=== PATIENT | male | born 1965 | race African-American/Black ===

== ENCOUNTER 2017-04-10 14:51 | Emergency (ER) | payer OTHER ==
[~2017-04-10] VITALS: Ht 180.3 cm; Wt 80.7 kg
[~2017-04-10 14:51] MED LIST: COLACE100 MG ORAL; NITROFURANTOIN100 M2 ORAL
[2017-04-10] MEDS ORDERED: NKM (15:11)
[2017-04-10] MEDS ORDERED: VERTICALM25 MG ORAL (15:44)
[2017-04-10 15:45] VITALS: BP 130/81
--- NOTE | 2017-04-10 18:53 | Emergency Room Report ---
History of Present Illness General Chief Complaint: Vertigo Source: Patient Present Illness HPI The patient is a 51-year-old male presenting for dizziness. He states that he was at home yesterday, made a sudden movement with his head, and then felt like the room was spinning. Symptoms have since resolved. He states that he felt an accompanying fullness in his right ear. He denies any pain He denies any other symptoms including nausea, vomiting, blurred vision, headache, chest pain , shortness of breath Allergies: Coded Allergies: No Known Allergies (Unverified , 08/16/15) Patient History Past Medical History: see triage record Pertinent Family History: none Reviewed Nursing Documentation: PMH: Agreed, PSxH: Agreed Nursing Documentation-PMH Past Medical History: No History, Except For Review of Systems All Other Systems: negative except mentioned in HPI Physical Exam Vital Signs Date Time Temp Pulse Resp B/P (MAP) Pulse Ox O2 Delivery O2 Flow Rate FiO2 04/10/17 15:08 99.0 90 17 130/81 97 Room Air Sp02 EP Interpretation: reviewed, normal General Appearance: no apparent distress, alert, GCS 15, non-toxic Head: normocephalic, atraumatic Eyes: bilateral eye normal inspection, bilateral eye PERRL ENT: hearing grossly normal, normal pharynx, no angioedema, normal voice, TMs + canals normal, uvula midline Neck: full range of motion, supple/symm/no masses Respiratory: chest non-tender, lungs clear, normal breath sounds, speaking full sentences Cardiovascular #1: regular rate, rhythm, no edema Musculoskeletal: back normal, gait/station normal, normal range of motion, non- tender Neurologic: alert, oriented x3, responsive, motor strength/tone normal, sensory intact, speech normal Psychiatric: judgement/insight normal, memory normal, mood/affect normal, no suicidal/homicidal ideation Skin: normal color, no rash, warm/dry, well hydrated Medical Decision Making PA Attestation Dr. Paul is my supervising physician. Patient management was discussed with my supervising physician Diagnostic Impression: Primary Impression: Vertigo ER Course The patient is a 51-year-old male presenting for dizziness. Differential diagnoses considered but not limited to: Benign positional vertigo , positional hypotension, labyrinthitis, Mnire's disease, AOM PE:vitals stable. NAD HEENT: Bilateral TM unremarkable. No erythema or bulging. No serous fluid is seen. PERRL. EOMI. no nystagmus. RRR Lungs clear to auscultation bilaterally The patient will be discharged with prescription for meclizine. He was told he needs to followup with his primary doctor. He may need to see ENT if symptoms continue. ER precautions are given Last Vital Signs Date Time Temp Pulse Resp B/P (MAP) Pulse Ox O2 Delivery O2 Flow Rate FiO2 04/10/17 15:08 99.0 90 17 130/81 97 Room Air Status: improved Disposition: HOME, SELF-CARE Condition: Improved Scripts Meclizine Hcl* (VERTICALM*) 25 Mg Tablet 25 MG ORAL THREE TIMES A DAY, #15 TAB Prov: ANASTASIIA WEBB 04/10/17 Referrals: [facility],REFERRING (PCP) Patient Instructions: Vertigo Additional Instructions: I discussed my findings with the patient. All questions and concerns have been answered. Treatment and medication compliance have been addressed. I advised the patient that they need to follow up with PMD in 3-5 days. Return to ED if symptoms worsen, new symptoms arise, or if needed for any reason. Patient verbalized understanding of discharge instructions. ANASTASIIA WEBB Apr 10, 2017 18:53
== END 2017-04-10 15:45 | disposition home or self-care (01) ==
LOC: EMR 15:38
DX: R42 Dizziness and giddiness (principal)
CPT/HCPCS: 99283

== ENCOUNTER 2017-10-25 14:28 | Emergency (ER) | payer OTHER ==
[~2017-10-25] VITALS: Ht 180.3 cm; Wt 80.7 kg
[~2017-10-25 14:28] MED LIST changes: +NKM; +VERTICALM25 MG ORAL
[2017-10-25 14:48] VITALS: BP 131/92
--- NOTE | 2017-10-25 15:47 | Emergency Room Report ---
History of Present Illness General Chief Complaint: Pain Source: Patient Present Illness HPI 52-year-old male presents to the emergency department complaining of currently 2 out of 10 in severity pain localized left shoulder 2 days. Patient reports that intermittently his pain will shoot up to about 8 out of 10 in severity and hearing primarily notices this at nighttime. 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 He is injury to this extremity in the past. He reports new onset clicking sensation with range of motion he denies erythema, open wounds, swelling or increased temperature palpation. Patient denies obvious deformities, unilateral weakness in the affected arm or paresthesias. He denies neck or back pain. Denies loss of sensation or gross motor movements of the extremities, incontinence of bowel or bladder. Denies CP, Palpitations, LOC, AMS, dizziness, Changes in Vision, weakness or a sudden severe headache. Allergies: Coded Allergies: No Known Allergies (Unverified , 08/16/15) Patient History Past Medical History: see triage record Past Surgical History: none Pertinent Family History: none Reviewed Nursing Documentation: PMH: Agreed; PSxH: Agreed Nursing Documentation-PMH Past Medical History: No History, Except For Review of Systems All Other Systems: negative except mentioned in HPI Physical Exam Vital Signs Date Time Temp Pulse Resp B/P (MAP) Pulse Ox O2 Delivery O2 Flow Rate FiO2 10/25/17 14:40 98.0 86 18 131/92 97 Room Air 98.1 Sp02 EP Interpretation: reviewed, normal General Appearance: no apparent distress, alert, GCS 15, non-toxic Head: normocephalic, atraumatic Eyes: bilateral eye normal inspection, bilateral eye PERRL ENT: hearing grossly normal, normal voice Neck: full range of motion Respiratory: lungs clear, normal breath sounds, speaking full sentences Cardiovascular #1: regular rate, rhythm, normal capillary refill Cardiovascular #2: 2+ radial (L) Musculoskeletal: back normal, gait/station normal, normal range of motion, tender - TTP to the posteriolateral left shoulder, no clicking palpated on range of motion. no obvious deformities. Neurologic: alert, oriented x3, responsive, motor strength/tone normal, sensory intact, normal gait, speech normal, grossly normal Psychiatric: judgement/insight normal Skin: normal color, no rash, warm/dry, well hydrated Medical Decision Making PA Attestation Dr. Velasquez is my supervising Physician whom patient management has been discussed with. Diagnostic Impression: Primary Impression: Tendinitis of left rotator cuff Additional Impression: Shoulder pain, left Qualified Codes: M25.512 - Pain in left shoulder ER Course 52-year-old male presents to the emergency department complaining of currently 2 out of 10 in severity pain localized left shoulder 2 days. Patient reports that intermittently his pain will shoot up to about 8 out of 10 in severity and hearing primarily notices this at nighttime. 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 He is injury to this extremity in the past. He reports new onset clicking sensation with range of motion he denies erythema, open wounds, swelling or increased temperature palpation. Patient denies obvious deformities, unilateral weakness in the affected arm or paresthesias. He denies neck or back pain. Denies loss of sensation or gross motor movements of the extremities, incontinence of bowel or bladder. Denies CP, Palpitations, LOC, AMS, dizziness, Changes in Vision, weakness or a sudden severe headache. Ddx considered but are not limited to Fracture, dislocation, contusion, Sprain/ Strain/Spasm , rotator cuff injury just to name a few. Vital signs: are WNL, pt. is afebrile H&PE are most consistent with musculoskeletal injury will perform imaging to r/ o fractures/dislocations. ORDERS: - X-ray Left shoulder - negative for fx, Dislocation, or significant soft tissue injury, per preliminary read in ED, and signed by JAMIE Callejas, my supervising physician has reviewed, and agrees with my interpretation. ED INTERVENTIONS: - Motrin PO DISCHARGE: At this time pt. is stable for d/c to home. Will provide printed patient care instructions, and any necessary prescriptions. Care plan and follow up instructions have been discussed with the patient prior to discharge. Other X-Ray Diagnostic Results Other X-Ray Diagnostic Results : X-Ray ordered: Left Shoulder # of Views/Limited Vs Complete: 3 View Indication: Pain EP Interpretation: Yes PA Xray: Interpretation reviewed, by supervising MD, and agrees with findings. Interpretation: no dislocation, no soft tissue swelling, no fractures Impression: No acute disease Electronically Signed by: Nayely Callejas PA-C Last Vital Signs Date Time Temp Pulse Resp B/P (MAP) Pulse Ox O2 Delivery O2 Flow Rate FiO2 10/25/17 15:36 98.1 10/25/17 14:48 89 18 131/92 97 Room Air Disposition: HOME, SELF-CARE Condition: Stable Scripts Methocarbamol* (ROBAXIN*) 500 Mg Tablet 1000 MG PO TID for 7 Days, #42 TAB 0 Refills Prov: Nayely Callejas 10/25/17 Ibuprofen* (MOTRIN*) 600 Mg Tablet 600 MG ORAL THREE TIMES A DAY, #30 TAB 0 Refills Prov: Nayely Callejas 10/25/17 Referrals: [facility],REFERRING (PCP) Patient Instructions: Rotator Cuff Tendinitis Additional Instructions: Take medications as directed. Follow up with a Primary Care Provider in 3-5 days, even if your symptoms have resolved. --Please review list of primary care clinics, if you do not already have a primary care provider Return sooner to ED if new symptoms occur, or current symptoms become worse. Do not drink alcohol, drive, or operate heavy machinery while taking Muscle Relaxers/ Robaxin as this may cause drowsiness. - Please note that this Emergency Department Report was dictated using [employer] portal concierge technology software, occasionally this can lead to erroneous entry secondary to interpretation by the dictation equipment. Nayely Callejas Oct 25, 2017 15:47
[2017-10-25] MEDS ORDERED: IBUPROFEN600 MG ORAL (15:50)
[2017-10-25] MEDS ORDERED: ROBAXIN500 MG PO (15:50)
[2017-10-25 15:54] VITALS: BP 125/78
--- NOTE | 2017-10-25 16:30 | Diagnostic Imaging Report ---
Indication: Pain Technique: XRAY Shoulder Compl L Comparison: None Findings/Impression: No acute fracture or dislocation. Imaged left lung grossly clear. No radiopaque foreign body identified. No discrete soft tissue abnormality appreciated.
== END 2017-10-25 15:55 | disposition home or self-care (01) ==
LOC: EMR 15:12
DX: M75.102 Unspecified rotator cuff tear or rupture of left shoulder, not specified as traumatic (principal)
CPT/HCPCS: 99283

== ENCOUNTER 2019-04-25 16:56 | Emergency (ER) | payer OTHER ==
[~2019-04-25] VITALS: Ht 180.3 cm; Wt 79.4 kg
[~2019-04-25 16:56] MED LIST changes: +IBUPROFEN600 MG ORAL; +ROBAXIN500 MG PO
[2019-04-25] MEDS ORDERED: Dicyclomine 10mg Cap ORAL ONE (17:30)
--- NOTE | 2019-04-25 17:50 | NUR ---
ED Nurse Note: Patient arrived to ED from home c/o left-sided abdominal pain and gas x 1 month. Patient states he tries eating "soothing foods" but it is not helping. Patient AxO x 4, no s/s of acute distress. 20 g IV started in left AC. Blood and urine sent to lab.
[2019-04-25 18:06] LABS: APPEARANCE,URINE CLEAR; BILIRUBIN, URINE NEGATIVE (NEGATIVE); COLOR,URINE AMBER; GLUCOSE, URINE (UA) NEGATIVE (NEGATIVE); KETONES,URINE 1+ (NEGATIVE); LEUKOCYTE ESTERASE ,URINE NEGATIVE (NEGATIVE); NITRITE,URINE NEGATIVE (NEGATIVE); PH,URINE 5 (4.5-8.0); PROTEIN,URINE NEGATIVE (NEGATIVE); UROBILINOGEN,URINE NORMAL MG/DL (0.0-1.0)
[2019-04-25 18:11] LABS: HEMATOCRIT 45.5 % (42.0-52.0); HEMOGLOBIN 14.6 G/DL (14.2-18.0); MEAN CORPUSCULAR VOLUME 97 FL (80-99); PLATELET COUNT 221 K/UL (150-450); RED CELL DISTRIBUTION WIDTH 12.5 % (11.6-14.8); WHITE BLOOD COUNT 12.1 K/UL (4.8-10.8)
[2019-04-25 18:28] LABS: ANION GAP 9 mmol/L (5-15); BLOOD UREA NITROGEN 21 mg/dL (7-18); CALCIUM 8.8 MG/DL (8.5-10.1); CARBON DIOXIDE 26 MMOL/L (21-32); CHLORIDE 107 MMOL/L (98-107); POTASSIUM 3.8 MMOL/L (3.5-5.1); SODIUM 142 MMOL/L (136-145)
[2019-04-25 18:32] LABS: ALANINE AMINOTRANSFERASE 33 U/L (12-78); ALBUMIN 4.1 G/DL (3.4-5.0); ALBUMIN/GLOBULIN RATIO 1.1 (1.0-2.7); ALKALINE PHOSPHATASE 69 U/L (46-116); ASPARTATE AMINO TRANSFERASE 16 U/L (15-37); BILIRUBIN,TOTAL 0.3 MG/DL (0.2-1.0)
--- NOTE | 2019-04-25 19:05 | NUR ---
ED Nurse Note: Received report from JOSS quiroz
[2019-04-25 19:10] VITALS: BP 132/85
--- NOTE | 2019-04-25 19:40 | Diagnostic Imaging Report ---
EXAM: CT Abdomen and Pelvis Without Intravenous Contrast CLINICAL HISTORY: PAIN TECHNIQUE: Axial computed tomography images of the abdomen and pelvis without intravenous contrast. One or more of the following dose reduction techniques were used: automated exposure control, adjustment of the mA and/or kV according to patient size, use of iterative reconstruction technique. CT DI: 19.3 DLP: 1123.5 COMPARISON: No relevant prior studies available. FINDINGS: Lung bases demonstrate no acute infiltrate. The liver, biliary tree, pancreas, spleen, and kidneys are within normal limits. Thickening of the left adrenal gland without discrete mass. Consider hyperplasia. Diverticulosis coli without diverticulitis. No bowel obstruction or perforation. The appendix is unremarkable. No abdominal aortic aneurysm. Small fatty umbilical hernia. No acute fracture. Disc degeneration at L5-S1. IMPRESSION: Diverticulosis coli without diverticulitis. Left adrenal gland thickening without discrete mass. Consider hyperplasia.
--- NOTE | 2019-04-25 20:04 | Emergency Room Report ---
History of Present Illness General Chief Complaint: Abdominal Pain Source: Patient Present Illness HPI 53-year-old male with no significant past medical history here complaining of over 1 month of left upper and lower abdominal pain with lots of flatulence. Denies constipation diarrhea. Denies blood in stool. Denies nausea vomiting however complains of acid reflux. Reports that he often eats a lot of acidic food and often smokes cigarettes. Denies any alcohol intake recently. Denies fever and chills, urinary symptoms, chest pain, shortness of breath, palpitation , no other associate symptoms. Has not recently traveled. Has not taken medication for symptom relief. Has not had a colonoscopy. Allergies: Coded Allergies: No Known Allergies (Unverified , 08/16/15) Patient History Past Medical History: see triage record Past Surgical History: unable to obtain Pertinent Family History: none Immunizations: UTD Reviewed Nursing Documentation: PMH: Agreed; PSxH: Agreed Nursing Documentation-PMH Past Medical History: No History, Except For Review of Systems All Other Systems: negative except mentioned in HPI Physical Exam Vital Signs Date Time Temp Pulse Resp B/P (MAP) Pulse Ox O2 Delivery O2 Flow Rate FiO2 04/25/19 17:05 98.6 85 16 129/91 (104) 95 Room Air Sp02 EP Interpretation: reviewed, normal General Appearance: no apparent distress, alert, GCS 15, non-toxic Head: normocephalic, atraumatic Eyes: bilateral eye normal inspection, bilateral eye PERRL ENT: hearing grossly normal, normal pharynx, no angioedema, normal voice Neck: full range of motion, supple/symm/no masses Respiratory: chest non-tender, lungs clear, normal breath sounds, no rhonchi, respiratory distress, speaking full sentences Cardiovascular #1: regular rate, rhythm, no edema, no murmur Gastrointestinal: normal bowel sounds, non tender, soft, no mass, no organomegaly, no peritonitis, no bruit, non-distended, no guarding, no hernia, no pulsatile mass, no rebound Rectal: deferred Genitourinary: no CVA tenderness Musculoskeletal: back normal, normal range of motion, gait/station normal, non- tender Neurologic: alert, motor strength/tone normal, oriented x3, sensory intact, responsive, speech normal Psychiatric: judgement/insight normal, memory normal, mood/affect normal, no suicidal/homicidal ideation Skin: no rash Lymphatic: no adenopathy Medical Decision Making PA Attestation All my diagnosis and treatment plans were reviewed ad discussed with my supervising physician Dr. Velasquez Diagnostic Impression: Primary Impression: Diverticulosis Additional Impressions: Gastritis Adrenal mass ER Course 53-year-old male with no significant past medical history here complaining of over 1 month of left upper and lower abdominal pain with lots of flatulence. Denies constipation diarrhea. Denies blood in stool. Denies nausea vomiting however complains of acid reflux. Reports that he often eats a lot of acidic food and often smokes cigarettes. Denies any alcohol intake recently. Denies fever and chills, urinary symptoms, chest pain, shortness of breath, palpitation , no other associate symptoms. Has not recently traveled. Has not taken medication for symptom relief. Has not had a colonoscopy. Ddx considered but are not limited to: appendicitis, cholecystis, gastritis, gastroenteritis, UTI, pyelonephritis, SBO, diverticulitis, influenza with GI manifestation, [place], Vital signs: are WNL, pt. is afebrile H&PE are most consistent with: Diverticulosis without diverticulitis, gastritis , incidental finding of adrenal mass ORDERS: abdominal CT, abdominal pain set, omeprazole, Bentyl, Zofran, Cipro, Flagyl ED INTERVENTIONS: NS bolus, Zofran, Pepcid, dicyclomine DISCHARGE: At this time pt. is stable for d/c to home. Will provide printed patient care instructions, and any necessary prescriptions. Care plan and follow up instructions have been discussed with the patient prior to discharge. Due to patient's elevated white count I treated him with ciprofloxacin and Flagyl for diverticulosis. Also patient to follow-up with primary doctor for H. pylori testing as well as gastritis follow-up and referral to gastroenterology for endoscopy. I will also advised patient to have a colonoscopy. Increase fiber intake. If worsening symptoms return to the emergency room. CT/MRI/US Diagnostic Results CT/MRI/US Diagnostic Results : Imaging Test Ordered: CT abdomen pelvis with contrast Impression IMPRESSION: Diverticulosis coli without diverticulitis. Left adrenal gland thickening without discrete mass. Consider hyperplasia. Last Vital Signs Date Time Temp Pulse Resp B/P (MAP) Pulse Ox O2 Delivery O2 Flow Rate FiO2 04/25/19 17:05 98.6 85 16 129/91 (104) 95 Room Air Disposition: HOME, SELF-CARE Condition: Stable Scripts Metronidazole* (FLAGYL*) 500 Mg Tablet 500 MG ORAL BID for 7 Days, #14 TAB Prov: Golden Wade 04/25/19 Ciprofloxacin* (CIPRO*) 500 Mg Tablet 500 MG PO BID for 7 Days, #14 TAB Prov: Golden Wade 04/25/19 Dicyclomine Hcl* (DICYCLOMINE HCL*) 10 Mg Capsule 10 MG ORAL TID, #10 CAP Prov: Golden Wade 04/25/19 Ondansetron (Zofran) 4 Mg Tablet 4 MG ORAL Q6H PRN for Nausea & Vomiting, #14 TAB Prov: Golden Wade 04/25/19 Omeprazole (OMEPRAZOLE) 20 Mg Tablet.dr 20 MG ORAL DAILY, #30 TAB Prov: Golden Wade 04/25/19 Referrals: NON PHYSICIAN (PCP) Patient Instructions: Abdominal Pain, Adult, Diverticulosis, Gastritis, Adult Additional Instructions: Take medication as directed, follow-up with your primary care provider, if worsening symptoms return to the emergency room. Need to be sent to sightseeing guide. If blood in stool or frequent chills return to emergency room Golden Wade Apr 25, 2019 20:04
[2019-04-25] MEDS ORDERED: ZOFRAN4 M1 ORAL (20:06)
[2019-04-25] MEDS ORDERED: OMEPRAZOLE20 M3 ORAL (20:06)
[2019-04-25] MEDS ORDERED: DICYCLOMINE HCL10 MG ORAL (20:06)
[2019-04-25] MEDS ORDERED: METRONIDAZOLE500 MG ORAL (20:13)
[2019-04-25] MEDS ORDERED: CIPRO500 MG PO (20:13)
[2019-04-25 20:14] VITALS: BP 130/86
--- NOTE | 2019-04-25 20:14 | NUR ---
ER DISCHARGE NOTE: Patient is cleared to be discharged per ERMD, pt is aox4, on room air, with stable vital signs. pt was given dc and prescription instructions, pt was able to verbalize understanding, pt id band and iv site removed intact without complications. pt is able to ambulate with steady gait. pt took all belongings. pt stable upon discharge.
== END 2019-04-25 20:14 | disposition home or self-care (01) ==
LOC: EMR 17:44
DX: K57.90 Diverticulosis of intestine, part unspecified, without perforation or abscess without bleeding (principal); K29.70 Gastritis, unspecified, without bleeding; E27.9 Disorder of adrenal gland, unspecified
CPT/HCPCS: 36415; 74177; 80053; 81001; 83690; 85007; 85025; 96361; 96374; 96375; J2405; J7030; Q9967; S0028; Z7502; 99284